=== PATIENT | male | born 1980 | race Asian ===

== ENCOUNTER 2020-09-07 04:34 | Emergency (ER) | payer OTHER ==
[~2020-09-07] VITALS: Ht 175.3 cm; Wt 95.3 kg
--- NOTE | 2020-09-07 04:35 | NUR ---
[employer] C/O DRUG OVERDOSE S/P METH USE ARCHITECTURE INTERN. PER RA, PT FOUND WITH [place] PUPILS AND DIAPHORETIC, REC'D 1MG NARCAN IV EN ROUTE. BS 173; PT APPEARS AWAKE/ALERT, ANSWERING QUESTION APPROPRIETLY, PT TO BED 10, RR EVEN/UNALABORED, ON RA. 99%,PLACED ON MONITOR. VSS. PENDING ER PROVIDER JADA
--- NOTE | 2020-09-07 05:44 | NUR ---
RT CALLED FOR BREATHING TREATMENT
[2020-09-07] MEDS ORDERED: ALBUTEROL FS 2.5 MG/3 ML VIAL.NEB ONE (05:50)
[2020-09-07] MEDS ORDERED: IPRATROPIUM NEB FS 0.5 MG/2.5 ML AMPUL.NEB ONE (05:50)
[2020-09-07] MEDS ORDERED: IPRATROPIUM NEB FS 0.5 MG/2.5 ML AMPUL.NEB NEB ONE (06:00)
[2020-09-07] MEDS ORDERED: ALBUTEROL FS 2.5 MG/3 ML VIAL.NEB NEB ONE (06:00)
[2020-09-07] MEDS ORDERED: NALO4SPR NS (11:11)
--- NOTE | 2020-09-07 11:40 | NUR ---
The patient alert and oriented x4. In room air and denies SOB. Respiration regular and unlabore. Denies pain. The patient denies SI/HI. Patient discharged to home in stable condition. Written and verbal after care instructions given. Patient verbalizes understanding of instruction. Removed Iv line with no bleeding. The site covered with folded 2x2. Food and water provided. Left in stable condition
[2020-09-07 11:41] VITALS: BP 143/76
--- NOTE | 2020-09-07 11:50 | NUR ---
"Insurance Salesman consult: business services coordinator consult requested for homelessness and substance use. Patient is a 40-year-old, male. SW met with patient at his bedside in the emergency department. Patient is alert and oriented x3, person, time, and place. Patient was unable to recall situation. Patient presented calm and his appeared disheveled. Per chart, patient was brought in by ambulance on 09/07/20 for an overdose. Patient stated that he is currently homeless and has been homeless for the last 2 years. Patient stated that he plans to live with a family friend, if they agree but is unsure at this time. Patient stated that he is currently receiving food stamps. SW asked patient about his history of substance use and patient stated that he has a history of amphetamine use (1x/week). SW assessed patients history of mental illness and patient denied history. Patient denied suicidal or homicidal ideation. SW offered the patient homeless and substance use resources. Patient accepted the resources and thanked SW. Patient signed the homeless waiver and SW filed waiver in the patients chart. Patient plans to return to his prior living arrangement on the streets and stated that he can use public transportation. PLAN: Patient will return to his prior living arrangement on the streets. No further SS intervention at this time, however, SW will remain available as needed. Substance use resources provided included: [facility] Substance Abuse Self-Helpline ([facility]) ; [facility] [address] [facility] [place] [address] ; [facility] [address] [facility] [address] ; [facility] [place] [address] [facility] [address] ; [facility] [address] [facility] [address] ; [facility] [address] [facility] [place] [address] ; [facility]; [facility] [place]; [place] [facility]; Alcoholics Anonymous -SFV Year-round shelters: [place] [address] [place] [address] ; [facility] [place] [address] [place] [address]; [facility] [facility] [address] SPA 4 | [facility] [place] Provider: [facility] Serve Address: [address], [address] # of Beds: 48 Population Served: [facility] Provider: First to Serve Address: [address] [facility], [address] # of Beds: 73 Population Served: [facility] 6 | [facility] Provider: Home at Last Address: [address] [facility], [address] # of Beds: 63 Population Served: [facility] 3 | [facility] Provider: [facility] [place] Address: [address] [place] [address], [address] # of Beds: 75 Population Served: [facility] 8 | [facility] Provider: [facility] [place] Address: [address] [facility] [address] # of Beds: 80 Population Served: [facility] 1 | [facility] Provider: [facility] [place] Address: [address] [address], [address] # of Beds: 85 Population Served: [facility] 2 | [facility] Provider: Rash[facility] Address: Confidential (please call for location) # of Beds: 52 Population Served: [facility] 4 | [facility] Provider: Lisette Rojas Address: [address] [facility], [address] # of Beds: 49 Population Served: [facility] Provider: [facility] To Serve Address: [address] [facility], [address] # of Beds: 27 Population Served: [facility]: [facility]: [address] [address] [place] ; [facility] [address] [facility] ; [facility] [address] [place] . Food Resources: [place] [facility] at [facility]- [address] [place]; Meet Each Need with Dignity ([facility]) [address] [facility]; [facility] [address] [facility]; [facility] [address] [facility]. Mental Health resources provided: [facility] [address] [place], [place] [id number] ; [facility] [address] [facility] [address], [place], [place] [id number] ; [facility] [address] [facility] [place], [place] [id number] ; [facility] [address] [place], [place] [id number] Healthcare Clinics: [facility] [address] [facility], [address] [place]. [place] ; [facility] [address] [facility] [address] [place] [address]; [facility] [address] [facility]. [place] [address] [phone] Counseling--[facility] [address] [facility], [place] [address] (Specializes in in-depth psychotherapy for emotional distress: anxiety, depression, interpersonal conflicts, life transitions, childhood abuse) PSYCHIATRIC OUTPATIENT SERVICES [facility] Partial Hospitalization and Intensive Outpatient Program (Managed Care and [place] Only) [address] [facility] [id number] [facility] Partial Hospitalization and Outpatient Program [address] [facility]. [address] [place] [address] [facility] Partial Hospitalization and Outpatient Program [address] [place] [address] ELKE AMAYA [facility] [address] [address] [place], [place] [address] [facility] Partial Hospitalization and Outpatient Program [address] [place], [place] [phone] "
== END 2020-09-07 11:41 | disposition home or self-care (01) ==
LOC: ER 04:34
DX: T40.601A Poisoning by unspecified narcotics, accidental (unintentional), initial encounter (principal); R06.2 Wheezing; E11.9 Type 2 diabetes mellitus without complications; F17.210 Nicotine dependence, cigarettes, uncomplicated; Z88.0 Allergy status to penicillin; Y92.89 Other specified places as the place of occurrence of the external cause
CPT/HCPCS: 71045-TC; 71046